=== PATIENT | female | born 1990 | race Caucasian/White ===

== ENCOUNTER 2018-01-01 08:09 | Emergency (ER) | payer OTHER ==
[~2018-01-01] VITALS: Ht 149.9 cm; Wt 75.0 kg
[2018-01-01 08:13] VITALS: Ht 149.9 cm; Wt 75.0 kg
[2018-01-01 09:18] VITALS: BP 121/76
== END 2018-01-01 09:34 | disposition home or self-care (01) ==
LOC: ED 08:09
DX: J06.9 Acute upper respiratory infection, unspecified (principal)
CPT/HCPCS: J7620; Q0092